=== PATIENT | male | born 1945 | race Caucasian/White ===

== ENCOUNTER → 2024-10-20 07:24 | Outpatient (REF) | payer OTHER, SELFPAY | LOC: RAD 07:24 | PROVIDERS: ATTENDING PHYSICIAN Internal Medicine Interventional Cardiology; FAMILY PHYSICIAN Family Medicine | DX: Z01.818 Encounter for other preprocedural examination (principal) | CPT/HCPCS: 75572; Q9967 ==

== ENCOUNTER 2024-12-05 06:08 | Inpatient (IN) | payer OTHER, SELFPAY ==
[2024-11-30 10:46] LABS: Hematocrit 41.8 % (39.0-52.0); Hemoglobin 13.9 g/dL (13.0-18.0); Mean Corp Hgb Conc. 33.3 g/dL (33.0-37.0); Mean Corpuscular Volume 87.1 fL (80.0-94.0); Nucleated Red Blood Cells % 0 % (-); Platelet Count 105 10^3/uL (130-400); Red Cell Dist. Width 13.9 % (11.5-14.5)
[2024-11-30 10:51] LABS: INR 1.34; PT 17.1 Sec (11.4-14.6)
[2024-11-30 10:55] LABS: ALT (SGPT) 26 U/L (0-50); AST (SGOT) 34 U/L (17-59); Albumin 4.2 g/dl (3.5-5.0); Alkaline Phosphatase 91 U/L (38-126); Blood Urea Nitrogen 12 mg/dl (9-20); Calcium 9.3 mg/dl (8.4-10.2); Carbon Dioxide 27 mmol/L (22-30); Chloride 106 mmol/L (98-107); Glucose 191 mg/dl (70-99); Potassium 4.6 mmol/L (3.5-5.1); Sodium 137 mmol/L (135-145); Total Protein 6.8 g/dl (6.3-8.2); eGFR > 60.00
[2024-11-30 13:48] VITALS: BMI 41.6
[2024-12-05] VITALS (10 sets, daily range): BP systolic 149–179; BP diastolic 66–95
[2024-12-05 06:47] LABS: Glucose - Point of Care 185 mg/dl (70-99)
[2024-12-05 08:55] LABS: ACT-LR - POC 342 Seconds (116-155)
--- NOTE | 2024-12-05 09:07 | WATCHMAN.MD ---
Watchman Implant
-
Watchman JERRY occlusion device implantation:
Mr. Muñoz is a 79 yrs old gentleman with high stroke risk with permanent atrial fibrillaiton and high risk of bleeding and advised to stop anticoagulation therapy is here for Watchman implantation.
Date of Procedure:
12/05/24
Indications:
High risk of bleeding with anticoagulation therapy for stroke prevention
Pre-Operative Diagnosis:
Permanent atrial fibrillation
Post-Operative Diagnosis:
Permanent atrial fibrillation
Procedure Performed:
Left atrial appendage occlusion with Watchman implantation (24 mm Watchman FLX Pro left atrial appendage closure device)
Performing Physicians:
TAVO: Shravan Moreira MD.
Transseptal fagoting machine operator: Daniel Velasco MD.
Implanter: Brooke Sewell MD
Anesthesia:
See anesthesia records
Detailed Description of the Procedure:
Written informed consent was obtained from the patient after a full explanation of the risks and benefits of the procedure including the risks of sedation and anesthesia.
The patient was brought to the electrophysiology laboratory in stable condition in fasting state. Continuous electrocardiographic and hemodynamic monitoring was initiated.
The initial rhythm was atrial fibrillation.
The procedure site was meticulously prepared with surgical scrub and allowed to dry with no pooling. Sterile draping was applied to cover the procedure site. The image intensifier was draped with sterile bag and positioned over the patient. After
infusion of local anesthetic, vascular access was obtained under ultrasound guidance and sheaths were placed over guide wire as detailed below.
Sheath and Catheter Placement:
In the right femoral vein, an 8-Swiss sheath was placed for Watchman placement procedure.
Sheaths:
Watchman delivery sheath upgraded from 8Fr sheath.
Catheters:
Watchman catheter
Trans-septal Puncture:
Heparin was initiated and infused to maintain appropriate ACT.
A VersaCross RF pigtail guidewire was advanced through the 8-Swiss sheath in the right femoral vein into the superior vena cava under fluoroscopic, TAVO guidance. The 8Fr was upgraded the Watchman sheath and was advanced into the superior vena cava
over the guide wire. A transseptal VersaCross RF pigtail via Faradrive connect system was utilized to perform the trans-septal puncture. The apparatus was withdrawn until it was in contact with the fossa ovalis. The position was adjusted based on
fluoroscopy and ultrasound images from TAVO. Under fluoroscopic, hemodynamic and TAVO ultrasound guidance, left atrium was cannulated by applying the radiofrequency energy. The right atrial and left atrial pressure was monitored. A guide wire was
placed and was advanced into the left superior pulmonary vein. Both the sheath and the dilator was advanced into the left atrium. The dilator was withdrawn. Blood was aspirated from the sheath and arterial blood confirmed. The sheath was flushed.
Saline injection noted into the left atrium on TAVO. The LA pressure was recorded. The saline injection was noted in the LA on the TAVO. A curved pig tail was advanced over the guide wire into the left atrium and the wire was removed.
Left atrial appendage atriography:
The pigtail was advanced into the JERRY and was confirmed on fluoroscopy and TAVO. The contrast was injected and the JERRY shape was recorded in DEJESUS /Caudal view (5/10 degrees). The size of the JERRY was again checked and confirmed reviewing the TAVO and
the fluoroscopy along with previously obtained CT scan images.
Watchman Deployment:
The Watchman delivery sheath was advanced into the JERRY over the pigtail till the right marker was at the location of the orifice line marked on the screen. The pigtail was removed and the Watchman delivery system was advanced through the sheath into
the JERRY till it was aligned with the outer sheath marker inside the JERRY. The watchman sheath was clicked with the outer sheath. Once acceptable location achieved, the outer sheath was pulled back keeping the device steady at the JERRY location till a
ball of the device was formed under fluoroscopic guidance. The whole system was advanced further into the JERRY till adequate depth is achieved into the JERRY. The JERRY occluder was deployed and expanded adequately anchoring to the JERRY. The device was
kept anchored with stable pressure to that location for 10 seconds.
The TAVO image confirmed adequate expansion. The tug test was done that showed the device is anchored well and is not able to come out. The compression was 25% and 28% on the three sides. There was no significant leak noted on the Doppler via TAVO.
The device was deployed by unscrewing the Watchman device and releasing from the connecting wire. The wire was pulled back into the sheath and the sheath was pulled out of the LA.
Implanted device:
WATCHMAN FLX Pro � 24mm
Procedure End
TAVO study was done again that showed no epicardial accumulation that was unchanged from earlier. A repeated images showed no change in the pericardial space. No complications noted.
Following the completion of the deployment, catheters were removed. Protamine 40 mg was given at the end of the procedure and ACT was checked repeatedly. The sheath was removed and hemostasis achieved with figure of 8 suture and manual compression
after acceptable ACT is achieved.
Left atrial Pressure:
Mean LA pressure was 21mmHg
Estimated Blood loss:
10 cc
Specimens Removed:
None.
Implants / Devices:
None
Urine output:
None
Packs / Drains/ Tubes:
None
Instrument / Sponge Count Correct:
Yes
Complications of the Procedure:
None
Condition of Patient at Time of Transfer:
Hemodynamically stable with no neurological or vascular compromise.
Summary:
Successful implantation of the left atrial occlusion device (WATCHMAN FLX Pro� 24mm)
Post procedure Plan for anticoagulation:
Continue Xarelto 20 mg QD for 3 month.
In 3 months, based on TAVO, will plan to discontinue Xarelto and start ASA 81 mg indefinitely.
[2024-12-05] MEDS: ANESTHETIC LOZENGE 1 LOZENGE PO (09:15)
[2024-12-05 09:25] LABS: Glucose - Point of Care 164 mg/dl (70-99)
--- NOTE | 2024-12-05 10:02 | WATCHMAN.MD ---
Watchman Implant
-
ELECTROPHYSIOLOGY/INTERVENTIONAL PROCEDURE REPORT
Date of Procedure: December 05, 2024
Referring: Yomi Agrawal MD
Assisting Physician: Daniel Velasco
PROCEDURES:
1. Left atrial appendage occlusion device using 24 mm WATCHMAN FLX device
2. Ultrasound-guided right common femoral venous access
INDICATION: High [id number] warranting [facility] full anticoagulation but inability to do this given his bleeding risk/bleeding complication.
ACCESS: Right common femoral vein, 16Fr sheath, under US guidance using micropunture kit.
Ultrasound was utilized for vascular access. The right femoral vein was visualized under ultrasound, and the vessels was patent. An image was stored permanently in the patient's medical record. Under direct ultrasound guidance, an 8 [place]
sheaths was inserted into the right common femoral vein, using a micropuncture kit through a modified Seldinger technique.
HEMODYNAMICS : (mmHg)
RA Pressure : 20
LA Pressure: 23
PROCEDURE REPORT:
After informed consent and patient safety 'Timeout' the patient was intubated and sedated by the anesthesiology service. Under ultrasound guidance, the right femoral vein was accessed by Dr. Daniel Velasco for transseptal puncture. Concomitant
transesophageal echocardiogram was performed by Dr. Shravan Moreira.
Baseline TAVO images revealed a trace pericardial effusion.
After ruling out a left atrial appendage thrombus, the patient was heparinized for an ACT between 350-400 seconds and under TAVO and intracardiac ultrasound guidance transseptal puncture was performed by Dr. Brooke Sewell using the [place] VersaCross
trans-septal system in a inferior position on the inferior-superior axis and a mid position on the anterior-posterior axis. Right atrial pressure was 20 millimeters mercury and left atrial pressure was 23 millimeters mercury.
Once transseptal puncture was performed over the [place] Versacross pigtail 0.035 wire, which was parked in the body of left atrial appendage, the watchman access double curve sheath was advanced over this into the left atrium. A 5 [place]guillan pigtail
catheter was placed into the left atrial appendage and an appendage gram was performed using intravenous contrast dye demonstrating an anatomy that was suitable likely for a 24 mm WATCHMAN FLX device.
After appropriately prepping the device, Dr. Brooke Sewell successfully deployed a 24 mm WATCHMAN FLX device. Device showed excellent positioning with no leaks post device deployment. 27 to 30% compression was noted in the device after deployment.
A 'tug-test' was performed demonstrating stability of the device. Given PASS criteria were met, the device was then released successfully by Dr. Brooke Sewell.
Post procedure, TAVO imaging demonstrated no new or worse pericardial effusion. Sheaths and catheters were removed from the left atrium and heparin was reversed using protamine. Catheters removed from the femoral veins with [id number] suture
applied. The patient tolerated the procedure well.
Closure Device: Figure of 8 suture
CONCLUSIONS
1. Successful deployment of 24 mm WATCHMAN FLX device under TAVO and ICE guidance.
RECOMMENDATIONS
1. Plan for daily Xarelto for the next 3 months.
2. 3-month TAVO post procedure to assess stability of device and rule out any laury-device leaks. If no issues noted on the 3-month TAVO post watchman placement such as a greater than 5 mm leak, plan would be to stop anticoagulation at that point and
continue daily baby aspirin lifelong.
3. Figure of 8 suture removal prior to discharge.
Copy to: Yomi Agrawal MD
Brooke Sewell MD, [facility], [facility]
--- NOTE | 2024-12-05 14:17 | W.DS.TRANS ---
DC Summary - [employer]
-
Discharge Instructions:
Discharge Diagnosis/Procedures Atrial fibrillation post Watchman device
Diet Low Cholesterol
Driving Restrictions No driving for 24 hours
Others Tests Follow up TAVO is scheduled for you at [place]
[facility] on 03/08/[address] Celestin. Pre-admission testing is scheduled
for 02/26/2025 at 11:20am (Ground floor of the
[facility]).
Instructions:
Stand-Alone Forms: DC Instructions- Cath/EP Lab
Changes to Home Medications: No
Discharge Medications:
DC Medications w/original date entered in [employer]
atorvastatin 40 mg tablet 40 mg PO HS 11/29/24
lisinopril 10 mg tablet 10 mg PO DAILY 11/29/24
metoprolol tartrate 50 mg tablet 50 mg PO BID 11/29/24
rivaroxaban 20 mg tablet (Xarelto) 20 mg PO DAILY@1200 11/29/24
Home Medication Changes
Pending Results: No
== END 2024-12-05 14:00 | disposition home or self-care (01) | DRG 274 ==
LOC: CATH-IN 06:08
PROVIDERS: Internal Medicine Cardiovascular Disease; ADMITTING PHYSICIAN Internal Medicine Interventional Cardiology; FAMILY PHYSICIAN Family Medicine
PROC: B24BZZ4 Ultrasonography of Heart with Aorta, Transesophageal (ICD-10-PCS; 2024-12-05)
PROC: 02L73DK Occlusion of Left Atrial Appendage with Intraluminal Device, Percutaneous Approach (ICD-10-PCS; 2024-12-05)
DX: I48.21 Permanent atrial fibrillation (principal); Z00.6 Encounter for examination for normal comparison and control in clinical research program; I50.32 Chronic diastolic (congestive) heart failure; Z68.41 Body mass index [BMI] 40.0-44.9, adult; E11.9 Type 2 diabetes mellitus without complications; E66.01 Morbid (severe) obesity due to excess calories; E78.5 Hyperlipidemia, unspecified; G47.33 Obstructive sleep apnea (adult) (pediatric); I11.0 Hypertensive heart disease with heart failure; I25.10 Atherosclerotic heart disease of native coronary artery without angina pectoris; I25.2 Old myocardial infarction; I25.5 Ischemic cardiomyopathy; M06.9 Rheumatoid arthritis, unspecified; M19.90 Unspecified osteoarthritis, unspecified site; Z91.199 Patient's noncompliance with other medical treatment and regimen due to unspecified reason; Z91.81 History of falling; Z95.5 Presence of coronary angioplasty implant and graft
CPT/HCPCS: 33340; 36415; 80053; 82962; 85025; 85347; 85610; 86850; 86900; 86901; 87070; 93005; 93355; Q9967